=== PATIENT | female | born 1995 | race Caucasian/White ===

== ENCOUNTER 2019-10-08 08:15 | Emergency (ER) | payer OTHER, SELFPAY ==
--- NOTE | 2019-10-08 08:29 | ED.PREGNANCY ---
HPI - General Chief complaint: OB/Uterine Contractions Stated complaint: 14 weeks ,bleeding Time Seen by Provider: 10/08/19 08:29 Source: patient Mode of arrival: Ambulatory Limitations: no limitations History of Present Illness HPI Narrative: Patient is a 24-year-old female currently 14 weeks presenting with bright red vaginal bleeding and back cramping. She says it started as a couple hours ago. She has not gotten before this. He came on suddenly. No abdominal cramping. No dizziness or lightheadedness. MD Complaint: vaginal bleeding Patient : Yes Related Data Allergies Allergy/AdvReac Type Severity Reaction Status Date / Time No Known Drug Allergies Allergy Verified 10/08/19 08:44 Review of Systems Review of Systems ROS Unobtainable: All systems reviewed & are unremarkable except as noted in HPI and below Constitutional Constitutional: Denies chills, Denies fever(s), Denies lethargy and Denies weakness Eyes Eyes: Denies change in vision, Denies eye discharge, Denies irritation and Denies loss of vision ENT Ears, Nose, Mouth, and Throat: Denies change in voice, Denies neck pain and Denies sore throat Cardiovascular Cardiovascular: Denies chest pain, Denies irregular heart rhythm, Denies lightheadedness, Denies palpitations, Denies dyspnea, Denies dyspnea on exertion and Denies orthopnea Respiratory Respiratory: Denies cough, Denies dyspnea, Denies dyspnea on exertion and Denies wheezing Gastrointestinal Gastrointestinal: Denies abdominal pain, Denies change in bowel habits, Denies diarrhea, Denies nausea and Denies vomiting Genitourinary Genitourinary: Reports as per HPI Musculoskeletal Musculoskeletal: Denies neck pain Integumentary/Breasts Skin/Breast: Denies pruritus, Denies erythema, Denies rash and Denies wounds Neurologic Neurologic: Denies loss of vision and Denies weakness Endocrine Endocrine: Denies palpitations Allergic/Immunologic Allergic/Immunologic: Denies wheezing PMFSH - Past Medical History Medical history: Reports no medical history Surgical history: Reports no surgical history Patient : Yes Exam Initial Vital Signs Initial Vital Signs: Vital Signs Temperature 98.1 F 10/08/19 08:39 Pulse Rate 98 H 10/08/19 08:39 Respiratory Rate 20 10/08/19 08:39 Blood Pressure 138/79 10/08/19 08:39 Pulse Oximetry 99 10/08/19 08:39 GENERAL: Well-appearing, well-nourished and in no acute distress. HEENT: Head atraumatic,EOMI, pupils reactive, face symmetric, moist mucous membranes CARDIOVASCULAR: Regular rate and rhythm without murmurs, rubs or gallops. RESPIRATORY: Breath sounds equal bilaterally, no wheezes rales or rhonchi. ABDOMEN: Soft, nontender. Normoactive bowel sounds all 4 quadrants. No guarding or rebound. EXTREMITIES: Normal range of motion, no clubbing or edema. Neurovascularly intact NEUROLOGICAL: Alert and oriented x4.Normal gait and speech. Cranial nerves II through XII grossly intact. SKIN: Warm, dry, no laceration, no petechiae, no rashes or lesions. Course Orders Ordered: ED Orders 10/08/19 08:49 US OB limited Stat 10/08/19 09:15 Urine Microscopic Stat 10/08/19 09:22 ABO RH Type Stat Complete Blood Count AUTO DIFF Stat Comprehensive Metabolic Panel Stat HCG Quantitative Stat Vital Signs Vital signs: Vital Signs - 8 hr 10/08/19 08:39 10/08/19 10:46 Temperature 98.1 F Pulse Rate 98 H 75 Respiratory Rate 20 16 Blood Pressure 138/79 108/65 Pulse Oximetry 99 100 MDM - OB/Uterine Contractions Lab Data Attestation: I reviewed the patient's lab results. Result diagrams: 10/08/19 09:22 10/08/19 09:22 Labs: Lab Results 10/08/19 10/08/19 10/08/19 Range/Units 09:15 09:22 09:22 WBC 7.2 (4.5-11.0) X10^3/uL RBC 3.91 L (4.0-5.2) X10^6/uL Hgb 12.1 (12.0-16.0) g/dL Hct 34.3 L (36-46) % MCV 87.9 (80-100) fL MCH 31.1 (26-34) PG MCHC 35.3 (30-36) % RDW 12.6 (11.6-14.8) % Plt Count 268 (150-400) X10^3/uL Neut % (Auto) 69.8 (50-75) % Lymph % (Auto) 24.2 L (25-40) % [place] % (Auto) 5.4 (3-14) % Eos % (Auto) 0.3 L (2-4) % Baso % (Auto) 0.3 (0-2) % Neut # (Auto) 5000 (2923-4486) /uL Lymph # (Auto) 1700 (2964-9546) /uL [place] # (Auto) 400 (0-900) /uL Eos # (Auto) 0 (0-450) /uL Baso # (Auto) 0 (0-100) /uL Sodium 139 (137-145) mmol/L Potassium 3.6 (3.4-5.1) mmol/L Chloride 108 H (98-107) mmol/L Carbon Dioxide 21 L (22-32) mmol/L BUN 5 L (7-17) mg/dL Creatinine 0.50 L (0.52-1.04) mg/dL Estimated GFR > 60.0 (>60) mL/min BUN/Creatinine Ratio 10.0 (6-22) Glucose 86 (70-100) mg/dL Calcium 9.1 (8.4-10.2) mg/dL Total Bilirubin 0.2 (0.2-1.3) mg/dL AST 19 (14-36) IU/L ALT 11 (<35) IU/L Alkaline Phosphatase 58 (38-126) U/L Total Protein 7.1 (6.3-8.2) g/dL Albumin 4.2 (3.5-5.0) g/dL Globulin 2.9 (1.7-4.1) g/dL Albumin/Globulin Ratio 1.4 (1.0-2.8) HCG, Quant 60351 mIU/mL Urine RBC 1-5/hpf (0-5/HPF) Urine WBC None seen (0-5/HPF) Urine Bacteria None seen (None) Ur Culture Indicated? Cult not indicated Blood Type 10/08/19 Range/Units 09:22 WBC (4.5-11.0) X10^3/uL RBC (4.0-5.2) X10^6/uL Hgb (12.0-16.0) g/dL Hct (36-46) % MCV (80-100) fL MCH (26-34) PG MCHC (30-36) % RDW (11.6-14.8) % Plt Count (150-400) X10^3/uL Neut % (Auto) (50-75) % Lymph % (Auto) (25-40) % [place] % (Auto) (3-14) % Eos % (Auto) (2-4) % Baso % (Auto) (0-2) % Neut # (Auto) (9987-4743) /uL Lymph # (Auto) (4855-5355) /uL [place] # (Auto) (0-900) /uL Eos # (Auto) (0-450) /uL Baso # (Auto) (0-100) /uL Sodium (137-145) mmol/L Potassium (3.4-5.1) mmol/L Chloride (98-107) mmol/L Carbon Dioxide (22-32) mmol/L BUN (7-17) mg/dL Creatinine (0.52-1.04) mg/dL Estimated GFR (>60) mL/min BUN/Creatinine Ratio (6-22) Glucose (70-100) mg/dL Calcium (8.4-10.2) mg/dL Total Bilirubin (0.2-1.3) mg/dL AST (14-36) IU/L ALT (<35) IU/L Alkaline Phosphatase (38-126) U/L Total Protein (6.3-8.2) g/dL Albumin (3.5-5.0) g/dL Globulin (1.7-4.1) g/dL Albumin/Globulin Ratio (1.0-2.8) HCG, Quant mIU/mL Urine RBC (0-5/HPF) Urine WBC (0-5/HPF) Urine Bacteria (None) Ur Culture Indicated? Blood Type O Positive Point of Care Testing Test Results Positive Urine Dip Bedside Urine Glucose Negative Bedside Urine Bilirubin - Negative Bedside Urine Ketone - Negative Urine Specific [place] 1.005 Bedside Urine Occult Blood ++ Bedside Urine pH 6.0 Bedside Urine Protein - Negative Bedside Urine Urobilinogen - Negative Bedside Urine Nitrite - Negative Bedside Urine Leukocytes - Negative Esterase Imaging Data US OB: Radiologist's impression: PROCEDURE: US OB LIMITED INDICATIONS: BLEEDING AT 14 WEEKS OUTSIDE/PRIOR DATING DATA: Last menstrual period (LMP): 06/30/19. LMP-based estimated date of delivery (LEONEL): 04/05/20. First dating scan (date and location): 10/08/19, [facility]. Estimated date of delivery (LEONEL) from first dating scan: 04/01/20. TECHNIQUE: Real-time scanning was performed of the fetus, with image documentation and biometric measurements. COMPARISON: None. FINDINGS: General: A single live intrauterine gestation is present. Presentation: Variable. Placenta: No findings of placenta previa or abruption can be seen. Amniotic fluid index: Not measured. Within normal limits by visual inspection. heart rate: 147 beats per minute. Maternal cervical canal: Not measured. biometrics: Biparietal diameter: 2.8 cm equals 14 weeks 6 days Head circumference: 10.4 cm equals 14 weeks 6 days Abdominal circumference: 9 cm equals 13 weeks 2 days Femur length: 1.5 cm equals 14 weeks 3 days Estimated gestational age from initial scan: not applicable. Composite gestational age from present scan: 14 weeks 6 days Estimated weight and percentile: Not given, secondary to early gestation. Measurement variability for biometric dating: +/- 7 days from 14 weeks to 15 weeks 6 days gestation, +/- 10 days from 16 weeks to 21 weeks 6 days gestation, +/- 2 weeks from 22 weeks to 27 weeks 6 days gestation, +/- 3 weeks for 28 weeks gestation or later. weight reference: 4500 g or EFW >90/95% is considered macrosomia or large for gestational age. EFW <10% is small for gestational age. EFW 5% or less is considered intra-uterine growth restriction. Other: Not applicable. IMPRESSION: A single live intrauterine is seen. No significant discrepancy is found between the estimated gestational age based on these images and the estimated gestational age based upon the given date of the last menstrual period. No findings of placenta previa or placenta abruption are detected. Dictated by: Tito Cabrera M.D. on 10/08/2019 at 8:1 MDM Narrative Medical decision making narrative: Patient has 14 week live , I discussed with patient follow-up and close monitoring. All questions have been addressed. Discharge Plan Departure Patient Disposition: Home Clinical Impression: Threatened Discharge Date/Time: 10/08/19 10:47 Instructions: Threatened Activity Restrictions/Additional Instructions: -[id number] -Baby is healthy 14weeks 6 days *You have been diagnosed with threatened *What to do: At this time baby appears HEALTHY. It is strongly recommended that he follow up with her OB. Recommend pelvic rest (nothing in her out of vagina, until bleeding stops) *Continue to take medications as directed Continue vitamins daily *Follow up with your primary care provider in 2-3 days *Return to ER if you should have increasing vaginal bleeding, soaking back pain or abdominal pain or any new, worsening or concerning symptoms Referrals: Located Within [facility] Mikayla [facility] [Provider Group]
[2019-10-08 08:39] VITALS: BP 138/79; PULSE 98; RESP 20; TEMP 36.7; O2SAT 99
--- NOTE | 2019-10-08 08:49 | DI.US.S_ITS ---
PROCEDURE: US OB LIMITED INDICATIONS: BLEEDING AT 14 WEEKS OUTSIDE/PRIOR DATING DATA: Last menstrual period (LMP): 06/30/19. LMP-based estimated date of delivery (LEONEL): 04/05/20. First dating scan (date and location): 10/08/19, [facility]. Estimated date of delivery (LEONEL) from first dating scan: 04/01/20. TECHNIQUE: Real-time scanning was performed of the fetus, with image documentation and biometric measurements. COMPARISON: None. FINDINGS: General: A single live intrauterine gestation is present. Presentation: Variable. Placenta: No findings of placenta previa or abruption can be seen. Amniotic fluid index: Not measured. Within normal limits by visual inspection. heart rate: 147 beats per minute. Maternal cervical canal: Not measured. biometrics: Biparietal diameter: 2.8 cm equals 14 weeks 6 days Head circumference: 10.4 cm equals 14 weeks 6 days Abdominal circumference: 9 cm equals 13 weeks 2 days Femur length: 1.5 cm equals 14 weeks 3 days Estimated gestational age from initial scan: not applicable. Composite gestational age from present scan: 14 weeks 6 days Estimated weight and percentile: Not given, secondary to early gestation. Measurement variability for biometric dating: +/- 7 days from 14 weeks to 15 weeks 6 days gestation, +/- 10 days from 16 weeks to 21 weeks 6 days gestation, +/- 2 weeks from 22 weeks to 27 weeks 6 days gestation, +/- 3 weeks for 28 weeks gestation or later. weight reference: 4500 g or EFW >90/95% is considered macrosomia or large for gestational age. EFW <10% is small for gestational age. EFW 5% or less is considered intra-uterine growth restriction. Other: Not applicable. IMPRESSION: A single live intrauterine is seen. No significant discrepancy is found between the estimated gestational age based on these images and the estimated gestational age based upon the given date of the last menstrual period. No findings of placenta previa or placenta abruption are detected. Dictated by: Tito Cabrera M.D. on 10/08/2019 at 8:18 Approved by: Tito Cabrera M.D. on 10/08/2019 at 8:21
[2019-10-08 09:18] LABS: Bacteria Urine None Seen; WBC Urine None Seen (0-5/HPF)
[2019-10-08 09:25] LABS: Culture Indicated Urine Cult Not Indicated; RBC Urine 1-5/HPF (0-5/HPF)
[2019-10-08 09:39] LABS: Add Manual Diff / Slide Review NO; Basophils Absolute Auto 0 /uL (0-100); Basophils Percent Auto 0.3 % (0-2); Eosinophils Absolute Auto 0 /uL (0-450); Eosinophils Percent Auto 0.3 % (2-4); Hematocrit 34.3 % (36-46); Hemoglobin 12.1 g/dL (12.0-16.0); Lymphocytes Absolute Auto 1700 /uL (1100-4500); Lymphocytes Percent Auto 24.2 % (25-40); Mean Corpuscular HGB Conc 35.3 % (30-36); Mean Corpuscular Hemoglobin 31.1 PG (26-34); Mean Corpuscular Volume 87.9 fL (80-100); Monocytes Absolute Auto 400 /uL (0-900); Monocytes Percent Auto 5.4 % (3-14); Neutrophils Absolute Auto 5000 /uL (1500-7000); Neutrophils Percent Auto 69.8 % (50-75); Platelet Count 268 X10^3/uL (150-400); Red Blood Cell Count 3.91 X10^6/uL (4.0-5.2); Red Cell Distribution Width 12.6 % (11.6-14.8); White Blood Cell Count 7.2 X10^3/uL (4.5-11.0)
[2019-10-08 09:51] LABS: Alanine Aminotransferase 11 IU/L (<35); Albumin 4.2 g/dL (3.5-5.0); Albumin Globulin Ratio 1.4 (1.0-2.8); Alkaline Phosphatase 58 U/L (38-126); Aspartate Aminotransferase 19 IU/L (14-36); Bilirubin Total 0.2 mg/dL (0.2-1.3); Blood Urea Nitrogen 5 mg/dL (7-17); Calcium 9.1 mg/dL (8.4-10.2); Carbon Dioxide 21 mmol/L (22-32); Chloride 108 mmol/L (98-107); Estimated Glomerular Filt Rate > 60.0 mL/min (>60); Globulin 2.9 g/dL (1.7-4.1); Glucose 86 mg/dL (70-100); HEMOLYSIS < 15 (0-50); Potassium 3.6 mmol/L (3.4-5.1); Sodium 139 mmol/L (137-145); Total Protein 7.1 g/dL (6.3-8.2)
[2019-10-08 10:30] LABS: HCG Quantitative /Beta subunit 44960 mIU/mL
[2019-10-08 10:46] VITALS: BP 108/65; PULSE 75; RESP 16; O2SAT 100
== END 2019-10-08 10:47 | disposition home or self-care (01) ==
PROVIDERS: Emergency Provider Emergency Medicine
DX: O20.0 Threatened abortion (principal); Z3A.14 14 weeks gestation of pregnancy
CPT/HCPCS: 36415; 76815; 80053; 81003; 81015; 81025; 84702; 85025; 86900; 86901; 99282; 99284

== ENCOUNTER 2020-02-03 07:34 | Emergency (ER) | payer OTHER, SELFPAY ==
[2020-02-03 07:35] VITALS: BP 144/77; PULSE 87; RESP 18; TEMP 37; O2SAT 99
--- NOTE | 2020-02-03 08:02 | ED.NAVMDI ---
HPI - Nausea/Vomiting/Diarrhea General Chief complaint: Nausea/Vomiting/Diarrhea Stated complaint: dizzy,seeing stars,throwing up,31 weeks Time Seen by Provider: 02/03/20 07:53 Source: patient Mode of arrival: Ambulatory Limitations: no limitations History of Present Illness HPI Narrative: Patient is a otherwise healthy with 2 spontaneous AB in the first-trimester currently in her 31st week EGA here for evaluation of 3 days of a headache and nausea and vomiting. Patient also states that yesterday she started to have some lower abdominal cramping. No vaginal bleeding. No urinary symptoms. Has not tried anything for symptoms except for sleep prior to arrival. Is scheduled to see her new OB provider tomorrow morning. States she has had 1 prior high blood pressure with a systolic in the 140s at the beginning of the month. She was seen by her current OB provider at that point and when it was repeated it was lower. She is also describing seeing stars. Also describing right upper quadrant sharp pain yesterday. Related Data Home Medications Medication Instructions Recorded Confirmed Complete 1 tab PO DAILY 02/03/20 02/03/20 Previous Rx's Medication Instructions Recorded ondansetron 4 mg PO Q6H PRN #20 tab 02/03/20 Allergies Allergy/AdvReac Type Severity Reaction Status Date / Time No Known Drug Allergies Allergy Verified 02/03/20 07:57 Review of Systems Constitutional Constitutional: Denies fever(s) and Reports headache(s) Eyes Comments: Seeing stars ENT Ears, Nose, Mouth, and Throat: Denies vertigo, Denies dizziness, Reports headache(s), Denies disequilibrium and Denies sore throat Cardiovascular Cardiovascular: Denies chest pain, Denies edema, Denies palpitations and Denies dyspnea Respiratory Respiratory: Denies cough and Denies dyspnea Gastrointestinal Gastrointestinal: Reports abdominal pain (Right upper quadrant), Denies change in stool character, Reports cramping (Lower abdomen), Reports nausea and Reports vomiting Genitourinary Genitourinary: Denies dysuria and Denies vaginal discharge Musculoskeletal Musculoskeletal: Denies myalgias, Denies arthralgias and Denies tingling Integumentary/Breasts Skin/Breast: Denies lesions and Denies rash Neurologic Neurologic: Denies behavioral changes, Denies confusion, Denies vertigo, Denies dizziness, Reports headache(s), Denies tingling and Denies disequilibrium Psychiatric Psychiatric: Denies behavioral changes and Denies confusion Endocrine Endocrine: Denies palpitations Hematologic/Lymphatic Hematologic/Lymphatic: Denies easy bleeding and Denies easy bruising Patient History Medical History Healthy adult (Acute) Surgical History H/O inguinal hernia repair (Acute) Social History Smoking Status: Never smoker Smoking Status: Never smoker alcohol intake frequency: 0-2 drinks per day Substance Use Type: does not use Exam Initial Vital Signs Initial Vital Signs: Vital Signs Temperature 98.6 F 02/03/20 07:35 Pulse Rate 87 02/03/20 07:35 Respiratory Rate 18 02/03/20 07:35 Blood Pressure 144/77 H 02/03/20 07:35 Pulse Oximetry 99 02/03/20 07:35 Const General: cooperative, comfortable, well developed and well groomed Limitations: mental status not altered HENMO Head: normal to inspection and normocephalic Resp Effort & Inspection: normal respiratory effort Auscultation: clear to auscultation bilaterally Cardio Rate: regular rate Rhythm: regular rhythm GI Palpation: soft Other: Gravid abdomen Back/Spine/Pelvis Back: No CVA tenderness Skin Lesions: no lesions Rashes: no rashes Neuro General: alert, awake and oriented x3 Cranial Nerves: CN's II-XI intact bilaterally Cognition: normal cognition Speech: speech normal Gait: normal gait Motor: muscle tone normal throughout Sensory Exam: no sensory deficits noted Extrem General: normal to inspection, capillary refill normal and No edema Psych Appearance: grossly normal and well kempt Scores GCS [place] coma scale eye opening: Spontaneous [place] coma scale verbal response: Orientated Justo coma scale motor response: Obey commands [place] coma scale total score: 15 Course Orders Ordered: ED Orders 02/03/20 08:07 ABO RH Type Stat Complete Blood Count AUTO DIFF Stat Comprehensive Metabolic Panel Stat Lactate Dehydrogenase Stat Lipase Stat 02/03/20 09:10 Urinalysis and Microscopic Stat Discontinued Medications Acetaminophen (Tylenol) 650 mg PO NOW ONE Stop: 02/03/20 09:12 Last Admin: 02/03/20 09:19 Dose: 650 mg Documented by: ZEKE Sodium Chloride (Normal Saline 0.9%) 1,000 mls @ 1,000 mls/hr IV BOLUS ONE Stop: 02/03/20 08:55 Last Infusion: 02/03/20 09:12 Dose: 0 mls/hr Documented by: Admin: 02/03/20 08:21 Dose: 1,000 mls/hr Documented by: ZEKE Ondansetron HCl (Zofran) 4 mg IV NOW ONE Stop: 02/03/20 08:06 Last Admin: 02/03/20 08:21 Dose: 4 mg Documented by: ZEKE Vital Signs Vital signs: Vital Signs - 8 hr 02/03/20 07:35 02/03/20 08:30 02/03/20 09:10 Temperature 98.6 F Pulse Rate 87 69 80 Respiratory Rate 18 16 14 Blood Pressure 144/77 H Blood Pressure [Left Arm] 114/77 128/94 H Pulse Oximetry 99 100 98 MDM - Nausea/Vomiting/Diarrhea Lab Data Attestation: I reviewed the patient's lab results. Result diagrams: 02/03/20 08:07 02/03/20 08:07 Labs: Lab Results 02/03/20 02/03/20 02/03/20 Range/Units 08:07 08:07 08:07 WBC 8.0 (4.5-11.0) X10^3/uL RBC 4.62 (4.0-5.2) X10^6/uL Hgb 14.3 (12.0-16.0) g/dL Hct 40.4 (36-46) % MCV 87.3 (80-100) fL MCH 30.8 (26-34) PG MCHC 35.3 (30-36) % RDW 12.2 (11.6-14.8) % Plt Count 293 (150-400) X10^3/uL Neut % (Auto) 68.8 (50-75) % Lymph % (Auto) 21.9 L (25-40) % [place] % (Auto) 8.6 (3-14) % Eos % (Auto) 0.3 L (2-4) % Baso % (Auto) 0.4 (0-2) % Neut # (Auto) 5500 (1464-0515) /uL Lymph # (Auto) 1800 (7311-8648) /uL [place] # (Auto) 700 (0-900) /uL Eos # (Auto) 0 (0-450) /uL Baso # (Auto) 0 (0-100) /uL Sodium 135 L (137-145) mmol/L Potassium 3.8 (3.4-5.1) mmol/L Chloride 105 (98-107) mmol/L Carbon Dioxide 20 L (22-32) mmol/L BUN 7 (7-17) mg/dL Creatinine 0.48 L (0.52-1.04) mg/dL Estimated GFR > 60.0 (>60) mL/min BUN/Creatinine Ratio 14.6 (6-22) Glucose 91 (70-100) mg/dL Calcium 10.4 H (8.4-10.2) mg/dL Total Bilirubin 0.5 (0.2-1.3) mg/dL AST 20 (14-36) IU/L ALT 16 (<35) IU/L Alkaline Phosphatase 100 (38-126) U/L Lactate Dehydrogenase 299 L (313-618) U/L Total Protein 7.5 (6.3-8.2) g/dL Albumin 4.1 (3.5-5.0) g/dL Globulin 3.4 (1.7-4.1) g/dL Albumin/Globulin Ratio 1.2 (1.0-2.8) Lipase 62 (23-300) U/L Urine Color Urine Appearance Urine pH (4.5-8.0) Ur Specific [place] (1.000-1.035) Urine Protein (Negative) Urine Glucose (UA) (Negative) g/dL Urine Ketones (NEGATIVE) Urine Occult Blood (Negative) Urine Nitrate (Negative) Urine Bilirubin (NEGATIVE) Urine Urobilinogen (0.2) E.U./dL Ur Leukocyte Esterase (NEGATIVE) Urine RBC (0-5/HPF) Urine WBC (0-5/HPF) Ur Squamous Epith Cells (0-5/HPF) Amorphous Sediment Urine Bacteria (None) Ur Culture Indicated? Blood Type 02/03/20 02/03/20 Range/Units 08:07 09:10 WBC (4.5-11.0) X10^3/uL RBC (4.0-5.2) X10^6/uL Hgb (12.0-16.0) g/dL Hct (36-46) % MCV (80-100) fL MCH (26-34) PG MCHC (30-36) % RDW (11.6-14.8) % Plt Count (150-400) X10^3/uL Neut % (Auto) (50-75) % Lymph % (Auto) (25-40) % [place] % (Auto) (3-14) % Eos % (Auto) (2-4) % Baso % (Auto) (0-2) % Neut # (Auto) (1136-4387) /uL Lymph # (Auto) (2886-4034) /uL [place] # (Auto) (0-900) /uL Eos # (Auto) (0-450) /uL Baso # (Auto) (0-100) /uL Sodium (137-145) mmol/L Potassium (3.4-5.1) mmol/L Chloride (98-107) mmol/L Carbon Dioxide (22-32) mmol/L BUN (7-17) mg/dL Creatinine (0.52-1.04) mg/dL Estimated GFR (>60) mL/min BUN/Creatinine Ratio (6-22) Glucose (70-100) mg/dL Calcium (8.4-10.2) mg/dL Total Bilirubin (0.2-1.3) mg/dL AST (14-36) IU/L ALT (<35) IU/L Alkaline Phosphatase (38-126) U/L Lactate Dehydrogenase (313-618) U/L Total Protein (6.3-8.2) g/dL Albumin (3.5-5.0) g/dL Globulin (1.7-4.1) g/dL Albumin/Globulin Ratio (1.0-2.8) Lipase (23-300) U/L Urine Color Yellow Urine Appearance Cloudy Urine pH 7.0 (4.5-8.0) Ur Specific [place] 1.020 (1.000-1.035) Urine Protein Negative (Negative) Urine Glucose (UA) Negative (Negative) g/dL Urine Ketones 3+ H (NEGATIVE) Urine Occult Blood Negative (Negative) Urine Nitrate Negative (Negative) Urine Bilirubin Negative (NEGATIVE) Urine Urobilinogen 0.2 (0.2) E.U./dL Ur Leukocyte Esterase Negative (NEGATIVE) Urine RBC None seen (0-5/HPF) Urine WBC None seen (0-5/HPF) Ur Squamous Epith Cells 1-5 /hpf (0-5/HPF) Amorphous Sediment 3+ Urine Bacteria None seen (None) Ur Culture Indicated? Cult not indicated Blood Type O Positive MDM Narrative Medical decision making narrative: Patient feels much better after fluids and nausea medication. Her blood pressure did improve. Her urine is negative. We were able to obtain heart tones on Doppler. Has a follow-up tomorrow with her new OB provider. I did discuss the case with Dr. oT with OB. We did discuss her blood pressure. We feel no intervention is needed emergently in the emergency department. Patient has cramping has also stopped. I do suspect this is all related to dehydration. She does not have nausea medication at home. Will send home with a prescription for Zofran. She was given return precautions and follow-up instructions. She expressed understanding and agreement. Discharge Plan Departure Patient Disposition: Home Clinical Impression: Nausea, Vomiting, and Diarrhea Qualifiers: Weeks of gestation: 31 weeks Qualified Code(s): Z3A.31 - 31 weeks gestation of Instructions: Nausea of (Alternative Therapy) Activity Restrictions/Additional Instructions: Keep all of your scheduled medical appointments. Be sure your increasing your fluid intake by drinking small amounts of fluid over long periods of time. Use the nausea medication as directed as needed. Return to the emergency department for any new or worsening symptoms Prescriptions: New ondansetron 4 mg tablet,disintegrating 4 mg PO Q6H PRN (Reason: nausea and vomiting) Qty: 20 RF: 0 No Action Complete 1 tab PO DAILY RF: 0
[2020-02-03] MEDS: SODIUM CHLORIDE 0.9% 1,000 ML 1000 ML IV (08:21)
[2020-02-03] MEDS: ONDANSETRON 4 MG/2 ML INJ IV (08:21)
[2020-02-03 08:27] LABS: Alanine Aminotransferase 16 IU/L (<35); Albumin 4.1 g/dL (3.5-5.0); Albumin Globulin Ratio 1.2 (1.0-2.8); Alkaline Phosphatase 100 U/L (38-126); Aspartate Aminotransferase 20 IU/L (14-36); BUN Creatinine Ratio 14.6 (6-22); Bilirubin Total 0.5 mg/dL (0.2-1.3); Blood Urea Nitrogen 7 mg/dL (7-17); Calcium 10.4 mg/dL (8.4-10.2); Carbon Dioxide 20 mmol/L (22-32); Chloride 105 mmol/L (98-107); Estimated Glomerular Filt Rate > 60.0 mL/min (>60); Globulin 3.4 g/dL (1.7-4.1); Glucose 91 mg/dL (70-100); HEMOLYSIS < 15 (0-50); Lactate Dehydrogenase 299 U/L (313-618); Lipase 62 U/L (23-300); Potassium 3.8 mmol/L (3.4-5.1); Sodium 135 mmol/L (137-145); Total Protein 7.5 g/dL (6.3-8.2)
[2020-02-03 08:29] LABS: Add Manual Diff / Slide Review NO; Basophils Absolute Auto 0 /uL (0-100); Basophils Percent Auto 0.4 % (0-2); Eosinophils Absolute Auto 0 /uL (0-450); Eosinophils Percent Auto 0.3 % (2-4); Hematocrit 40.4 % (36-46); Hemoglobin 14.3 g/dL (12.0-16.0); Lymphocytes Absolute Auto 1800 /uL (1100-4500); Lymphocytes Percent Auto 21.9 % (25-40); Mean Corpuscular HGB Conc 35.3 % (30-36); Mean Corpuscular Hemoglobin 30.8 PG (26-34); Mean Corpuscular Volume 87.3 fL (80-100); Monocytes Absolute Auto 700 /uL (0-900); Monocytes Percent Auto 8.6 % (3-14); Neutrophils Absolute Auto 5500 /uL (1500-7000); Neutrophils Percent Auto 68.8 % (50-75); Platelet Count 293 X10^3/uL (150-400); Red Blood Cell Count 4.62 X10^6/uL (4.0-5.2); Red Cell Distribution Width 12.2 % (11.6-14.8)
[2020-02-03 08:30] VITALS: BP 114/77; PULSE 69; RESP 16; O2SAT 100
[2020-02-03 09:10] VITALS: BP 128/94; PULSE 80; RESP 14; O2SAT 98
[2020-02-03] MEDS: ACETAMINOPHEN 325 MG TABLET 650 MG PO (09:19)
[2020-02-03 09:21] LABS: Appearance Urine UA CLOUDY; Bilirubin Urine UA NEGATIVE (NEGATIVE); Color Urine UA YELLOW; Glucose Urine UA NEGATIVE (Negative); Ketones Urine UA 3+ (NEGATIVE); Leukocyte Esterase Urine UA NEGATIVE (NEGATIVE); Nitrite Urine UA NEGATIVE (Negative); Occult Blood Urine UA NEGATIVE (Negative); Protein Urine UA NEGATIVE (Negative); Urobilinogen Urine UA 0.2 E.U./dL (0.2)
[2020-02-03 09:22] LABS: Bacteria Urine None Seen; RBC Urine None Seen (0-5/HPF); WBC Urine None Seen (0-5/HPF)
[2020-02-03 09:30] LABS: Amorphous Sediment Urine 3+; Culture Indicated Urine Cult Not Indicated; Squamous Epithelial Cell Urine 1-5 /HPF (0-5/HPF)
[2020-02-03 10:05] VITALS: BP 116/67; PULSE 70; RESP 16; O2SAT 99
== END 2020-02-03 10:07 | disposition home or self-care (01) ==
PROVIDERS: Emergency Provider Emergency Medicine
DX: O26.893 Other specified pregnancy related conditions, third trimester (principal); R11.2 Nausea with vomiting, unspecified; R19.7 Diarrhea, unspecified; R51 Headache; R10.11 Right upper quadrant pain; I10 Essential (primary) hypertension; Z3A.31 31 weeks gestation of pregnancy
CPT/HCPCS: 36415; 80053; 81001; 83615; 83690; 85025; 86900; 86901; 96361; 96374; 99284; J2405

== ENCOUNTER → 2020-03-01 14:31 | Outpatient (CLI) | payer OTHER, SELFPAY ==
[2020-03-02 17:11] LABS: Strep Grp B PCR NEG for Grp B Strep
== END ==
PROVIDERS: PCP Nurse Practitioner Family; Visit Provider Obstetrics & Gynecology
DX: Z34.83 Encounter for supervision of other normal pregnancy, third trimester (principal); Z3A.35 35 weeks gestation of pregnancy
CPT/HCPCS: 87653

== ENCOUNTER 2020-03-22 14:08 | Outpatient (CLI) | payer OTHER, SELFPAY ==
--- NOTE | 2020-03-22 17:49 | PM.OBTRLD ---
Visit Information Visit Information Date of evaluation: 03/22/20 Primary OB Provider: Archana Gallagher Reason for Evaluation: Yes non-stress test Comments/Additional reasons for admission: Patient sent from clinic for elevated FHR in the setting of copious movement, no other complaints. [facility] Medical History Anxiety and depression (Chronic) Chronic headaches (Acute) Healthy adult (Acute) History of bipolar disorder (Chronic) LGSIL (low grade squamous intraepithelial dysplasia) (Acute ~09/14/19) Miscarriage (Acute) Nondependent cannabis abuse (Acute) (Inactive) Surgical History H/O inguinal hernia repair (Acute ~1998) H/O oral surgery (Acute) Family History Mother Ovarian cancer Grandmother Uterine cancer Social History marital status: household members: none education level: high school occupational status: unemployed current occupational exposures/hazards: No special [place] needs: No Smoking Status: Never smoker second hand exposure: No alcohol intake: former substance use type: marijuana Review of Systems Constitutional Constitutional: Reports system reviewed and no additional complaints, except as documented Evaluation Evaluation Baseline heart rate: 150 Variability: Moderate (11-25) monitor accelerations: Present monitor decelerations: Absent Contraction Frequency (minutes): 2 Category of Tracing: I Diagnosis, Plan/Disposition Plan/Disposition Plan: Patient's movement settled and EFM showed FHR baseline 150-155 with accelerations. Antepartum precautions discussed. OB Disposition: home
== END 2020-03-22 15:32 | disposition home or self-care (01) ==
LOC: LABOR 14:56 → OB 03-23 13:11
PROVIDERS: PCP Nurse Practitioner Family; Referring Provider Obstetrics & Gynecology; Visit Provider Obstetrics & Gynecology
DX: O36.8330 Maternal care for abnormalities of the fetal heart rate or rhythm, third trimester, not applicable or unspecified (principal); Z3A.38 38 weeks gestation of pregnancy
CPT/HCPCS: 59025; G0378; G0379

== ENCOUNTER 2020-03-26 16:55 | Outpatient (CLI) | payer OTHER, SELFPAY ==
--- NOTE | 2020-03-26 17:17 | PM.OBTRLD ---
Visit Information Visit Information Date of evaluation: 03/26/20 Primary OB Provider: Archana Gallagher On-call OB Provider: Daja Gomez Reason for Evaluation: Yes rule out labor Comments/Additional reasons for admission: Patient came to the center due to contractions all day which have increased in frequency to every 5 minutes. Denies leaking or bleeding and reports good movement. Vital Signs Vital Signs: T 36.1 BP 113.65 P 76 PFSH Social History marital status: household members: none education level: high school occupational status: unemployed current occupational exposures/hazards: No special [place] needs: No Smoking Status: Never smoker second hand exposure: No alcohol intake: former substance use type: marijuana Evaluation Evaluation Baseline heart rate: 130 Variability: Moderate (11-25) monitor accelerations: Present monitor decelerations: Absent Category of Tracing: I Diagnosis, Plan/Disposition Final Diagnosis (1) 38 weeks gestation of : Current Visit: No Status: Acute Plan/Disposition Plan: 24 year old at 38 weeks and 4 day gestation in for a labor check. NST reactive. Contractions every 5-10 min. SVE fingertip/50/-2 per RN. Discussed signs of early labor with patient over the phone and when to return to center. OB Disposition: home
== END 2020-03-26 17:29 | disposition home or self-care (01) ==
LOC: OB 03-27 15:09
PROVIDERS: PCP Nurse Practitioner Family; Referring Provider Family Medicine; Visit Provider Family Medicine
DX: Z34.03 Encounter for supervision of normal first pregnancy, third trimester (principal); Z3A.38 38 weeks gestation of pregnancy
CPT/HCPCS: 59025; G0378; G0379

== ENCOUNTER 2020-03-30 14:06 | Outpatient (CLI) | payer OTHER, SELFPAY ==
--- NOTE | 2020-03-30 14:58 | PM.OBTRLD ---
Visit Information Visit Information Date of evaluation: 03/30/20 Primary OB Provider: Archana Gallagher On-call OB Provider: Ngoc Cristina Reason for Evaluation: Yes non-stress test non-stress test reason: decreased movement [facility] Social History marital status: household members: none education level: high school occupational status: unemployed current occupational exposures/hazards: No special [place] needs: No Smoking Status: Never smoker second hand exposure: No alcohol intake: former substance use type: marijuana Evaluation Evaluation Baseline heart rate: 120 Variability: Moderate (11-25) monitor accelerations: Present monitor decelerations: Absent Contraction Frequency (minutes): 5 Uterine Contraction Intensity: Mild Category of Tracing: I Diagnosis, Plan/Disposition Final Diagnosis (1) Decreased movement: Current Visit: No Status: Acute Plan/Disposition Plan: 39w1d here with decreased movement. NST reactive, pt now feeling baby move. Irregular contractions not felt by patient. OB Disposition: home
== END 2020-03-30 14:13 | disposition home or self-care (01) ==
LOC: OB 03-31 11:58
PROVIDERS: PCP Nurse Practitioner Family; Referring Provider Obstetrics & Gynecology; Visit Provider Obstetrics & Gynecology
DX: O36.8130 Decreased fetal movements, third trimester, not applicable or unspecified (principal); Z3A.39 39 weeks gestation of pregnancy
CPT/HCPCS: 59025; G0378; G0379

== ENCOUNTER 2020-03-31 04:50 | Observation (INO) | payer OTHER, SELFPAY ==
--- NOTE | 2020-03-31 05:01 | PM.OBHP.1 ---
OB HPI History of Present Condition Chief complaint: evaluation of labor Narrative: Juan Pablo Blanchard is a 24 year old @ 39+2 presenting in early labor, with contractions starting last night and now every 4 minutes. She reports brown spotting but no bright red vaginal bleeding, reports good movement, denies loss of fluid, and denies any other complaints obstetrical or otherwise. Her has been complicated by late transfer of care at 31 weeks, but she has had no other complications. [facility] Social History marital status: household members: none education level: high school occupational status: unemployed current occupational exposures/hazards: No special [place] needs: No Smoking Status: Never smoker second hand exposure: No alcohol intake: former substance use type: marijuana Meds Home Medications and Allergies Home Medications Medication Instructions Recorded Confirmed Type Complete 1 tab PO DAILY 02/03/20 02/03/20 History ondansetron 4 mg PO Q6H PRN #20 tab 02/03/20 Rx Allergies Allergy/AdvReac Type Severity Reaction Status Date / Time No Known Drug Allergies Allergy Verified 02/03/20 17:43
[2020-03-31] MEDS: ONDANSETRON 4 MG ODT 8 MG PO (07:57)
[2020-03-31] MEDS: hydrOXYzine pamoate 25 MG CAPSULE 50 MG PO (07:57)
[2020-03-31] MEDS: MORPHINE 10 MG/ML INJ IM (07:57)
--- NOTE | 2020-03-31 20:34 | P.TNLD_ITS ---
Visit Information Visit Information Date of evaluation: 03/31/20 Primary OB Provider: Archana Gallagher Reason for Evaluation: Yes rule out labor Comments/Additional reasons for admission: This patient presented with contr actions q4-5 and no other complaints obstetrical or otherwise, found to be 2/100/-2 on serial SVEs 3 hours apart. Reassuring status, Vital Signs Vital Signs: 132/83, HR 75, T 36.6[facility] Medical History Anxiety and depression (Chronic) Chronic headaches (Acute) Healthy adult (Acute) History of bipolar disorder (Chronic) LGSIL (low grade squamous intraepithelial dysplasia) (Acute ~09/14/19) Miscarriage (Acute) Nondependent cannabis abuse (Acute) (Inactive) Surgical History H/O inguinal hernia repair (Acute ~1998) H/O oral surgery (Acute) Family History Mother Ovarian cancer Grandmother Uterine cancer Social History marital status: household members: none education level: high school occupational status: unemployed current occupational exposures/hazards: No special [place] needs: No Smoking Status: Never smoker second hand exposure: No alcohol intake: former substance use type: marijuana Review of Systems Constitutional Constitutional: Reports system reviewed and no additional complaints, except as documented Cardiovascular Cardiovascular: Reports system reviewed; no additional complaints, except as documented Respiratory Respiratory: Reports system reviewed and no additional complaints, except as documented Gastrointestinal Gastrointestinal: Reports system reviewed and no additional complaints, except as documented Genitourinary Genitourinary: Reports system reviewed and no additional complaints, except as documented Musculoskeletal Musculoskeletal: Reports system reviewed; no additional complaints, except as documented Exam Vital Signs (past 8 hours): 132/83, HR 75 Const General: cooperative and healthy appearing Other: smiling and talking through contractions GI Palpation: soft and No tender External Female Exam: external appearance normal Evaluation Evaluation Baseline heart rate: 120 Variability: Moderate (11-25) monitor accelerations: Present monitor decelerations: Absent Category of Tracing: I Cervical dilation (cm): 2 Cervical effacement (%): 100 station: -2 Diagnosis, Plan/Disposition Plan/Disposition Plan: Home with antepartum precautions, 10mg IM methergine and 50mg IM vistaril for theraputic rest. Reassuring and maternal status, early labor with no appreciable cervical change. OB Disposition: home
== END 2020-03-31 08:04 | disposition home or self-care (01) ==
PROVIDERS: Admitting Provider Obstetrics & Gynecology; PCP Nurse Practitioner Family; Referring Provider Obstetrics & Gynecology; Visit Provider Obstetrics & Gynecology
DX: Z34.03 Encounter for supervision of normal first pregnancy, third trimester (principal); Z3A.39 39 weeks gestation of pregnancy
CPT/HCPCS: 59025; 96372; G0378; G0379; J2270

== ENCOUNTER 2020-03-31 17:08 | Inpatient (IN) | payer OTHER, SELFPAY ==
[2020-03-31 17:39] LABS: Platelet Count 259 X10^3/uL (150-400)
[2020-03-31] MEDS: LACTATED RINGERS 1,000 ML 100 ML IV ×2 (17:40→18:30)
[2020-03-31 19:19] LABS: COVID19 -Nasal RAPID Negative (Negative)
--- NOTE | 2020-03-31 20:17 | P.HPOB_ITS ---
OB HPI Date/Time Date of admission: 03/31/20 Date Patient Seen: 03/31/20 Time Patient Seen: 20:18 History of Present Condition Chief complaint: EVAL OF LABOR : 3 Para: 0 Estimated Date of Delivery: 04/05/20 Estimated Gestational Age (weeks): 39 Narrative: Juan Pablo Blanchard is a 24 year old @39+2 admitted in active labor. The patient was discharged in early labor early this AM, and returned when her contractions got painful. The patient has had SROM for light mec since admission, but denied LOF, VB, decreased movement, or any other complaints at admission. Her has been complicated by transfer of care at 31 weeks, but has otherwise been uncomplicated. She has a history of 2x 5 week SABs, and of an LSIL pap due for repeat . She denies any other contributory medical, surgical, or family history. History of Present care: good care Dating criteria: LMP confirmed by 1st trimester US Ultrasounds: normal 1st trimester US and normal mid trimester US Preadmission Labs Blood type: O (+) positive -: Antibody screen: negative, GBS status: negative, HBsAG: negative, HIV: negative and RPR/VDLR: negative -: Rubella: immune and Varicella: not immune PAP: Abnormal (LSIL) Integrated screen: negative 1 hr GTT: 86 Prior (ies) History: 2014: 5 week SABs, expectantly managed with no complications. Evaluation Evaluation Baseline heart rate: 120 Variability: Moderate (11-25) monitor accelerations: Present monitor decelerations: Variable (rare) Uterine Contraction Intensity: Mild Category of Tracing: II Cervical dilation (cm): 9 Cervical effacement (%): 100 station: -1 Laboratory results: Laboratory Tests 03/31/20 03/31/20 03/31/20 17:25 17:25 17:25 WBC 12.9 H RBC 4.51 Hgb 13.9 Hct 40.0 MCV 88.6 MCH 30.9 MCHC 34.8 RDW 12.6 Plt Count 259 273 Neut % (Auto) 78.4 H Lymph % (Auto) 14.5 L Jones % (Auto) 6.8 Eos % (Auto) 0.1 L Baso % (Auto) 0.2 Neut # (Auto) 51958 H Lymph # (Auto) 1900 [place] # (Auto) 900 Eos # (Auto) 0 Baso # (Auto) 0 COVID-19 PCR Blood Type O Positive Antibody Screen Negative 03/31/20 17:51 WBC RBC Hgb Hct MCV MCH MCHC RDW Plt Count Neut % (Auto) Lymph % (Auto) Jones % (Auto) Eos % (Auto) Baso % (Auto) Neut # (Auto) Lymph # (Auto) Jones # (Auto) Eos # (Auto) Baso # (Auto) COVID-19 PCR Negative Blood Type Antibody Screen Comments: SROM for light mec, forebag ruptured at exam [facility] Medical History Anxiety and depression (Chronic) Chronic headaches (Acute) Healthy adult (Acute) History of bipolar disorder (Chronic) LGSIL (low grade squamous intraepithelial dysplasia) (Acute ~09/14/19) Miscarriage (Acute) Nondependent cannabis abuse (Acute) (Inactive) Surgical History H/O inguinal hernia repair (Acute ~1998) H/O oral surgery (Acute) Family History Mother Ovarian cancer Grandmother Uterine cancer Social History marital status: household members: none education level: high school occupational status: unemployed current occupational exposures/hazards: No special [place] needs: No Smoking Status: Never smoker second hand exposure: No alcohol intake: former substance use type: marijuana Meds Home Medications and Allergies Home Medications Medication Instructions Recorded Confirmed Type Complete 1 tab PO DAILY 02/03/20 02/03/20 History ondansetron 4 mg PO Q6H PRN #20 tab 02/03/20 Rx Allergies Allergy/AdvReac Type Severity Reaction Status Date / Time No Known Drug Allergies Allergy Verified 02/03/20 17:43 Review of Systems Constitutional Constitutional: Reports system reviewed and no additional complaints, except as documented Cardiovascular Cardiovascular: Reports system reviewed; no additional complaints, except as documented Respiratory Respiratory: Reports system reviewed and no additional complaints, except as documented Gastrointestinal Gastrointestinal: Reports as per HPI Genitourinary Genitourinary: Reports as per HPI Exam Vital Signs (past 8 hours): 140s-160s/80s-90s, HR 90s Const General: cooperative, healthy appearing and comfortable GI Palpation: soft and No tender External Female Exam: external appearance normal Presentation: vertex (DAVID) Extrem General: normal to inspection Objective Labs Result Diagrams: 03/31/20 17:25 Labs: Laboratory Results - last 24 hr 03/31/20 03/31/20 03/31/20 17:25 17:25 17:25 WBC 12.9 H RBC 4.51 Hgb 13.9 Hct 40.0 MCV 88.6 MCH 30.9 MCHC 34.8 RDW 12.6 Plt Count 259 273 Neut % (Auto) 78.4 H Lymph % (Auto) 14.5 L Jones % (Auto) 6.8 Eos % (Auto) 0.1 L Baso % (Auto) 0.2 Neut # (Auto) 03294 H Lymph # (Auto) 1900 [place] # (Auto) 900 Eos # (Auto) 0 Baso # (Auto) 0 COVID-19 PCR Blood Type O Positive Antibody Screen Negative 03/31/20 17:51 WBC RBC Hgb Hct MCV MCH MCHC RDW Plt Count Neut % (Auto) Lymph % (Auto) Jones % (Auto) Eos % (Auto) Baso % (Auto) Neut # (Auto) Lymph # (Auto) Jones # (Auto) Eos # (Auto) Baso # (Auto) COVID-19 PCR Negative Blood Type Antibody Screen Assessment and Plan Assessment and Plan Assessment and Plan narrative: This patient presents in active labor, and received her epidural. She has elevated blood pressures in the setting of discomfort, but PEC labs will be added to the usual admission labs. Patient for peanut ball, anticipate vaginal delivery. - cEFM, toco - CBC, T&S, RPR
[2020-03-31 20:43] LABS: Red Blood Cell Count 4.51 X10^6/uL (4.0-5.2); White Blood Cell Count 12.9 X10^3/uL (4.5-11.0)
[2020-03-31 20:44] LABS: Hemoglobin 13.9 g/dL (12.0-16.0); Lymphocytes Percent Auto 14.5 % (25-40); Mean Corpuscular HGB Conc 34.8 % (30-36); Mean Corpuscular Hemoglobin 30.9 PG (26-34); Mean Corpuscular Volume 88.6 fL (80-100); Monocytes Percent Auto 6.8 % (3-14); Neutrophils Percent Auto 78.4 % (50-75); Platelet Count 273 X10^3/uL (150-400); Red Cell Distribution Width 12.6 % (11.6-14.8)
[2020-03-31 20:45] LABS: Add Manual Diff / Slide Review NO; Basophils Absolute Auto 0 /uL (0-100); Basophils Percent Auto 0.2 % (0-2); Eosinophils Absolute Auto 0 /uL (0-450); Eosinophils Percent Auto 0.1 % (2-4); Lymphocytes Absolute Auto 1900 /uL (1100-4500); Monocytes Absolute Auto 900 /uL (0-900); Neutrophils Absolute Auto 10100 /uL (1500-7000)
[2020-03-31 21:04] LABS: Aspartate Aminotransferase 25 IU/L (14-36); Blood Urea Nitrogen 8 mg/dL (7-17); Estimated Glomerular Filt Rate > 60.0 mL/min (>60); Uric Acid 5.1 mg/dL (2.5-6.2)
--- NOTE | 2020-03-31 22:43 | PM.OBPRVD ---
Labor & Delivery Delivery date: 03/31/20 Intrapartal events: Acceleration and Deceleration Cervical ripening method: none Induction method: none Delivery augmentation: rupture of membranes Delivery monitor: external FHT and external uterine Route of delivery: L&D Laceration Description: Labial and Superficial (1st degree labial, spontaneously hemostatic) Estimated blood loss (mL): 200 Anesthesia type: Epidural Narrative: This patient presented to the center in active labor at 39 weeks gestation. She received an epidural, progressed spontaneously to fully dilated after SROM followed by AROM of a forebag, and was delivered of a healthy baby girl after a second stage . The shoulders delivered with ease, and there was no nuchal cord. There were two small labial 1st degree lacerations which were spontaneously hemostatic, and the placenta delivered spontaneously and intact shortly after delivery. Lochia was mild, and there were no other intrapartum or immediate complications. [place] Baby Adalynn: gender: Female Presentation: vertex position: Left Occiput Transverse (DAVID) Placenta delivery description: Spontaneous cord vessel description: 3 Vessels score (1 min): 9 score (5 min): 9 Narrative: Weight 6#5. Plan for aftercare: Routine care.
[2020-04-01 00:51] VITALS: BP 140/90
[2020-04-01] MEDS: DOCUSATE 100 MG CAPSULE PO (09:58)
--- NOTE | 2020-04-01 11:01 | PM.OBPN.1 ---
Subjective - OB Subjective Patient comments: no complaints, pain well controlled, tolerating diet and flatus present baby status: doing well [place] feeding status: exclusively breast feeding Date Patient Seen: 04/01/20 Time Patient Seen: 11:01 Exam Vital Signs (past 8 hours): 123/68, pulse 88, 36.6 C Const General: cooperative, healthy appearing and comfortable Resp Effort & Inspection: normal respiratory effort Auscultation: clear to auscultation bilaterally Cardio Rate: regular rate Rhythm: regular rhythm GI Palpation: soft and No tender Skin General: no rashes or lesions noted Objective Labs Result Diagrams: 03/31/20 17:25 03/31/20 20:45 Labs: Laboratory Results - last 24 hr 03/31/20 03/31/20 03/31/20 17:25 17:25 17:25 WBC Cancelled RBC Cancelled Hgb Cancelled Hct Cancelled MCV Cancelled MCH Cancelled MCHC Cancelled RDW Cancelled Plt Count 259 Cancelled Neut % (Auto) Cancelled Lymph % (Auto) Cancelled [place] % (Auto) Cancelled Eos % (Auto) Cancelled Baso % (Auto) Cancelled Neut # (Auto) Cancelled Lymph # (Auto) Cancelled [place] # (Auto) Cancelled Eos # (Auto) Cancelled Baso # (Auto) Cancelled BUN Creatinine Estimated GFR BUN/Creatinine Ratio Uric Acid AST COVID-19 PCR Blood Type O Positive Antibody Screen Negative 03/31/20 03/31/20 03/31/20 17:25 17:51 20:45 WBC 12.9 H RBC 4.51 Hgb 13.9 Hct 40.0 MCV 88.6 MCH 30.9 MCHC 34.8 RDW 12.6 Plt Count 273 Neut % (Auto) 78.4 H Lymph % (Auto) 14.5 L [place] % (Auto) 6.8 Eos % (Auto) 0.1 L Baso % (Auto) 0.2 Neut # (Auto) 32628 H Lymph # (Auto) 1900 [place] # (Auto) 900 Eos # (Auto) 0 Baso # (Auto) 0 BUN 8 Creatinine 0.57 Estimated GFR > 60.0 BUN/Creatinine Ratio 14.0 Uric Acid 5.1 AST 25 COVID-19 PCR Negative Blood Type Antibody Screen Assessment & Plan Plan day: 1 plan OB: routine care Comments: This patient is a 24yo P1 PPD1 s/p uncomplicated , with no perineal lacerations. Patient had elevated intrapartum BPs in the setting of poor pain control which have now resolved, with no PIH symptoms and normal PIH labs. Mother and baby are doing well, and patient is interested in discharge this evening and would like to readdress around dinner time. Time Spent With Patient Time: Total time spent is greater than 50% in coordination of care (as documented) at patient's floor/unit and/or counseling patient: Time with patient: 15-24 minutes
--- NOTE | 2020-04-01 17:37 | PM.OBDS.1 ---
Discharge Providers Provider Date of admission: 03/31/20 17:08 Discharge Date: 04/01/20 Primary care physician: ABHINAV Wild Consults: 04/01/20 22:43 Consult to Research Project Coordinator Routine Comment: Discharge provider: Archana Gallagher MD Summary Hospital Course Date Patient Seen: 04/01/20 Time Patient Seen: 17:37 Peripartum Data Delivery Method: Natural Vaginal Laceration description: Superficial complications: none 1: Gender: Male Disposition of : home Discharge Diagnosis (1) Vaginal delivery: Status: Acute Status at Discharge Cognitive/behavioral status at discharge: oriented Functional status at discharge: independent ambulation Overall status at discharge: patient is progressing back to baseline Time Spent with Patient Time attestation: Total time spent providing and/or coordinating discharge services: Time spent: Greater than 30 minutes Objective Labs Result Diagrams: 03/31/20 17:25 03/31/20 20:45 Labs: Laboratory Results - last 24 hr 03/31/20 03/31/20 03/31/20 17:25 17:25 17:25 WBC Cancelled RBC Cancelled Hgb Cancelled Hct Cancelled MCV Cancelled MCH Cancelled MCHC Cancelled RDW Cancelled Plt Count 259 Cancelled Neut % (Auto) Cancelled Lymph % (Auto) Cancelled [place] % (Auto) Cancelled Eos % (Auto) Cancelled Baso % (Auto) Cancelled Neut # (Auto) Cancelled Lymph # (Auto) Cancelled [place] # (Auto) Cancelled Eos # (Auto) Cancelled Baso # (Auto) Cancelled BUN Creatinine Estimated GFR BUN/Creatinine Ratio Uric Acid AST COVID-19 PCR Blood Type O Positive Antibody Screen Negative 03/31/20 03/31/20 03/31/20 17:25 17:51 20:45 WBC 12.9 H RBC 4.51 Hgb 13.9 Hct 40.0 MCV 88.6 MCH 30.9 MCHC 34.8 RDW 12.6 Plt Count 273 Neut % (Auto) 78.4 H Lymph % (Auto) 14.5 L [place] % (Auto) 6.8 Eos % (Auto) 0.1 L Baso % (Auto) 0.2 Neut # (Auto) 42257 H Lymph # (Auto) 1900 [place] # (Auto) 900 Eos # (Auto) 0 Baso # (Auto) 0 BUN 8 Creatinine 0.57 Estimated GFR > 60.0 BUN/Creatinine Ratio 14.0 Uric Acid 5.1 AST 25 COVID-19 PCR Negative Blood Type Antibody Screen Exam Vital Signs (past 8 hours): 123/68 Const General: cooperative, healthy appearing and comfortable Discharge Plan Discharge Plan Patient Disposition: Home Discharge orders & Medications Prescriptions: New ibuprofen 600 mg tablet 600 mg PO Q6H PRN (Reason: vaginal delivery) Qty: 30 RF: 0 docusate sodium [Colace] 100 mg capsule 100 mg PO BID Qty: 30 RF: 0 Continued Complete 1 tab PO DAILY RF: 0 ondansetron 4 mg tablet,disintegrating 4 mg PO Q6H PRN (Reason: nausea and vomiting) Qty: 20 RF: 0 Follow up/Referrals: Archana Gallagher MD [Physician] - 1 Month Diet/Activity/Treatments Diet: Regular Activity: Nothing in the vagina for 6 weeks. Avoid lifting more than 10 lbs for 6 weeks. If you have increasing bleeding, pain, fevers, chills, headaches, nausea, vomiting, visual changes, or any other complaints, call the clinic or come to the ED. Skin/Wound/Dressing Care Report to your healthcare provider any signs of infection, such as:: chills, fever, night sweats, increased pain, unusual drainage and unusual redness Visit Report/Discharge Packet Instructions: DI for Labor and Delivery, Vaginal Discharge Data Primary Care Provider: Penny Siddiqui
== END 2020-04-01 22:30 | disposition home or self-care (01) | DRG 807 ==
PROVIDERS: Anesthesiology; Admitting Provider Obstetrics & Gynecology; PCP Nurse Practitioner Family; Referring Provider Obstetrics & Gynecology; Visit Provider Obstetrics & Gynecology
DX: O70.0 First degree perineal laceration during delivery (principal); Z37.0 Single live birth; Z3A.39 39 weeks gestation of pregnancy; Z11.59 Encounter for screening for other viral diseases
CPT/HCPCS: 01967; 36415; 59025; 59050; 59410; 84450; 84550; 85025; 85049; 86850; 86900; 86901; 87635; 96372; G0378; G0379; J2270